=== PATIENT | male | born 1990 | race American Indian/Alaskan Native ===

== ENCOUNTER 2018-08-22 22:14 | Emergency (ER) | payer SELFPAY ==
[2018-08-22 23:20] LABS: Hematocrit 45.4 % (35.5-45.6); Hemoglobin 15.9 gm/dl (11.8-15.2); Mean Corpuscular HGB Conc 35 % (32-34); Mean Corpuscular Volume 94 fl (84-94); Platelet Count 172 K/mm3 (140-440); Red Blood Count 4.82 M/mm3 (3.65-5.03); Red Cell Distribution Width 12.9 % (13.2-15.2)
[2018-08-22 23:23] LABS: Alanine Aminotransferase 93 units/L (7-56); Albumin 4.4 g/dL (3.9-5); BUN/Creatinine Ratio 7; Blood Urea Nitrogen 9 mg/dL (9-20); Calcium 9.7 mg/dL (8.4-10.2); Hemolysis Index 16
--- NOTE | 2018-08-22 23:40 | XRay Report ---
FINAL REPORT PROCEDURE: XR CHEST ROUTINE 2V TECHNIQUE: PA and lateral chest radiographs were obtained. CPT 90750 HISTORY: sob COMPARISON: No prior studies are available for comparison. FINDINGS: Heart: Normal. Mediastinum/Vessels: Normal. Lungs/Pleural space: Normal. Bony thorax: No acute osseous abnormality. Other: IMPRESSION: Normal examination.
[2018-08-23 00:12] LABS: Basophils % (Manual) 0 % (0.0-1.8); Eosinophils % (Manual) 0 % (0.0-4.3); Total Cells Counted 100
[2018-08-23 00:13] LABS: Large Platelets 1+; Platelet Estimate Consistent w Auto; RBC Morphology Normal
[2018-08-23] MEDS ORDERED: NACL 0.9% 1000 ML 1,000 ML IV ONE (02:15)
[2018-08-23] MEDS ORDERED: TORADOL IV ONE (02:15)
--- NOTE | 2018-08-23 02:20 | Emergency Department Report ---
- General Chief Complaint: Abdominal Pain Stated Complaint: FLU/ FEVER /ABDOMINAL PAIN Time Seen by Provider: 08/23/18 02:04 Source: patient Mode of arrival: Ambulatory Limitations: No Limitations - History of Present Illness Initial Comments: 28-year-old male presents to the ED stating think I have the flu. Patient reports 4 day history of fever, headache, sore throat, decreased appetite, nausea, cough and congestion, abdominal pain. Patient denies vomiting or diarrhea. Patient states he has been taking the counter meds without relief. MD Complaint: fever, cough, sore throat, nasal congestion -: days(s) (4) Severity: moderate Consistency: constant Improves With: nothing Worsens With: nothing Associated Symptoms: fever, myalgias, headache, rhinorrhea, nasal congestion, sore throat, cough, abdominal pain, nausea. denies: vomiting, diarrhea Treatments Prior to Arrival: "cold medicine" - Related Data Previous Rx's Medication Instructions Recorded Last Taken Type Benzonatate [Tessalon Perles] 100 mg PO Q8HR PRN #20 capsule 08/23/18 Unknown Rx Naproxen [Naprosyn] 500 mg PO BID #20 tablet 08/23/18 Unknown Rx Promethazine [Phenergan TAB] 25 mg PO Q6HR PRN #20 tab 08/23/18 Unknown Rx Allergies Allergy/AdvReac Type Severity Reaction Status Date / Time No Known Allergies Allergy Unverified 05/07/16 21:43 ED Review of Systems ROS: Stated complaint: FLU/ FEVER /ABDOMINAL PAIN Other details as noted in HPI Comment: All other systems reviewed and negative Constitutional: fever ENT: throat pain, congestion Respiratory: cough Gastrointestinal: abdominal pain, nausea ED Past Medical Hx - Past Medical History Previous Medical History?: No - Surgical History Past Surgical History?: No - Social History Smoking Status: Current Every Day Smoker Substance Use Type: Alcohol - Medications Home Medications: Home Medications Medication Instructions Recorded Confirmed Last Taken Type Benzonatate [Tessalon Perles] 100 mg PO Q8HR PRN #20 capsule 08/23/18 Unknown Rx Naproxen [Naprosyn] 500 mg PO BID #20 tablet 08/23/18 Unknown Rx Promethazine [Phenergan TAB] 25 mg PO Q6HR PRN #20 tab 08/23/18 Unknown Rx ED Physical Exam - General Limitations: No Limitations General appearance: alert, in no apparent distress - Head Head exam: Present: atraumatic, normocephalic - Eye Eye exam: Present: normal appearance, PERRL, EOMI - ENT ENT exam: Present: normal orophraynx, mucous membranes moist - Neck Neck exam: Present: normal inspection - Respiratory Respiratory exam: Present: normal lung sounds bilaterally. Absent: respiratory distress - Cardiovascular Cardiovascular Exam: Present: regular rate, normal rhythm - GI/Abdominal GI/Abdominal exam: Present: soft, tenderness (mild diffuse abdominal tenderness). Absent: distended - Extremities Exam Extremities exam: Present: normal inspection - Neurological Exam Neurological exam: Present: alert, oriented X3 - Psychiatric Psychiatric exam: Present: normal affect, normal mood - Skin Skin exam: Present: warm, dry, intact, normal color ED Course Vital Signs 08/22/18 08/23/18 22:34 02:26 Temperature 99.8 F H 100.6 F H Pulse Rate 99 H 87 Respiratory 18 Rate Blood Pressure 97/59 Blood Pressure 120/68 [Left] O2 Sat by Pulse 92 Oximetry ED Medical Decision Making - Lab Data Result diagrams: 08/22/18 22:50 08/22/18 22:50 - Radiology Data Radiology results: report reviewed, image reviewed - Medical Decision Making 28-year-old male with URI symptoms. Patient initially presented with blood pressure of 97/59 at triage. Once patient in treatment room, vitals were repeated and patient has been normotensive. Patient is bag of fever, some Tylenol was given. Workup normal. Lactic acid normal, rapid flu and strep negative, chest x-ray negative, remainder of labs unremarkable. Patient given 1 L bolus of IV fluids and Toradol. Reports feeling much better. Will discharge at this time with prescription for Naprosyn, Phenergan, Tessalon Perles. Return precautions given. - Differential Diagnosis flu, pneumonia, URI, strep throat Critical care attestation.: If time is entered above; I have spent that time in minutes in the direct care of this critically ill patient, excluding procedure time. ED Disposition Clinical Impression: Upper respiratory infection Disposition: DC-01 TO HOME OR SELFCARE Is pt being admited?: No Condition: Stable Instructions: Upper Respiratory Infection (ED), Viral Syndrome (ED), Cold Symptoms (ED) Prescriptions: Benzonatate [Tessalon Perles] 100 mg PO Q8HR PRN #20 capsule PRN Reason: Cough Naproxen [Naprosyn] 500 mg PO BID #20 tablet Promethazine [Phenergan TAB] 25 mg PO Q6HR PRN #20 tab PRN Reason: Nausea Referrals: [facility] [Provider Group] - 3-5 Days Time of Disposition: 04:53
[2018-08-23] MEDS ORDERED: TYLENOL PO ONE (02:42)
[2018-08-23 06:29] VITALS: BP 121/69
== END 2018-08-23 06:29 | disposition home or self-care (01) ==
LOC: ED 22:14
DX: J06.9 Acute upper respiratory infection, unspecified (principal); F17.200 Nicotine dependence, unspecified, uncomplicated
CPT/HCPCS: 36415; 71046; 80053; 82140; 83690; 85007; 85025; 87116; 87400; 87430; 96374; 99284; J1885; J7030